=== PATIENT | female | born 1985 | race Caucasian/White ===

== ENCOUNTER 2017-04-22 16:52 | Emergency (ER) | payer MEDICAID ==
[~2017-04-22] VITALS: Ht 167.6 cm; Wt 92.0 kg
[2017-04-22] MEDS ORDERED: HYDROmorphone 1 mg/ml syringe IV PRN (17:05)
[2017-04-22] MEDS ORDERED: ondansetron 4mg rapidly disintigrating tab PO ONE (17:05)
[2017-04-22 17:18] LABS: BASOPHILS % (AUTO) 0.4 % (0-1); EOSINOPHILS # (AUTO) 0.4 X10'3 (0-0.9); EOSINOPHILS % (AUTO) 2.9 % (0-6); HEMATOCRIT 45.2 % (35.0-45.0); HEMOGLOBIN 15.6 g/dl (12.0-16.0); LYMPHOCYTES # (AUTO) 1.5 X10'3 (1.1-4.8); LYMPHOCYTES % (AUTO) 12.5 % (21-51); MEAN CORPUSCULAR HEMOGLOBIN 32.6 PG (27.0-31.0); MEAN CORPUSCULAR HGB CONC 34.4 % (33.0-36.5); MEAN CORPUSCULAR VOLUME 94.7 FL (78-98); MEAN PLATELET VOLUME 7.6 FL (7.4-10.4); MONOCYTES # (AUTO) 0.8 X10'3 (0-0.9); MONOCYTES % (AUTO) 6.3 % (2-12); NEUTROPHILS # (AUTO) 9.4 X10'3 (1.8-7.7); NEUTROPHILS % (AUTO) 77.9 % (42-75); PLATELET COUNT 329 X10'3 (140-440); RED BLOOD COUNT 4.78 X10'6 (4.20-5.60); RED CELL DISTRIBUTION WIDTH 12.6 % (11.5-14.5); WHITE BLOOD COUNT 12.1 X10'3 (4.5-11.0)
[2017-04-22 17:34] LABS: ALANINE AMINOTRANSFERASE 30 U/L (12-78); ALBUMIN 3.9 G/DL (3.4-5.0); ALKALINE PHOSPHATASE 67 IU/L (46-116); ANION GAP 7 (8-16); ASPARTATE AMINO TRANSFERASE 36 U/L (10-37); BILIRUBIN,TOTAL 0.5 MG/DL (0.1-1.0); BLOOD UREA NITROGEN 15 MG/DL (7-18); BUN/CREATININE RATIO 20.3 (6.6-38.0); CALCIUM 9.1 MG/DL (8.5-10.1); CHLORIDE 106 MMOL/L (99-107); CREATININE 0.74 MG/DL (0.40-0.90); GLUCOSE 109 MG/DL (70-104); LIPASE 175 U/L (73-393); POTASSIUM 4.1 MMOL/L (3.5-5.1); SODIUM 141 MMOL/L (135-145); TOTAL CARBON DIOXIDE 27.6 MMOL/L (24-32); TOTAL PROTEIN 7.8 G/DL (6.4-8.2); eGFR > 90 ML/MIN
[2017-04-22 19:54] LABS: URINE HCG NEGATIVE (NEG)
[2017-04-22 19:55] LABS: COLOR,URINE YELLOW (Yellow); GLUCOSE, URINE NEGATIVE (Neg); KETONES,URINE 15 mg/dl (Neg); LEUKOCYTE ESTERASE ,URINE NEGATIVE (Neg); NITRITES, URINE NEGATIVE (Neg); OCCULT BLOOD,URINE SMALL (Neg); PROTEIN,URINE NEGATIVE (Neg); UROBILINOGEN,URINE 0.2 E.U/dL (0.2-1.0)
[2017-04-22 20:06] LABS: UA COLLECTION TYPE CLN CATCH MIDSTREAM
[2017-04-22 20:07] LABS: CLARITY,URINE SLIGHTLY CLOUDY (Clear)
[2017-04-22 20:08] LABS: BACTERIA,URINE FEW /HPF (Neg); MUCUS STRANDS MODERATE /LPF (Neg); SQUAMOUS EPITHELIAL CELL,UR FEW /LPF (FEW); WBC,URINE NONE SEEN /HPF (0-4)
[2017-04-22 20:35] VITALS: BP 124/80
[2017-04-22] MEDS ORDERED: HYDR-3965 PO (21:53)
== END 2017-04-22 22:03 | disposition home or self-care (01) ==
LOC: ER 16:54
DX: K80.50 Calculus of bile duct without cholangitis or cholecystitis without obstruction (principal); R10.11 Right upper quadrant pain; Z88.6 Allergy status to analgesic agent; Z88.8 Allergy status to other drugs, medicaments and biological substances
CPT/HCPCS: 36415; 74176; 76700; 80053; 81001; 81025; 83690; 85025; 96374; 99285; J1170

== ENCOUNTER 2017-04-24 05:15 | Emergency (ER) | payer MEDICAID ==
[~2017-04-24] VITALS: Ht 167.6 cm; Wt 92.4 kg
[~2017-04-24 05:15] MED LIST: HYDR-3965 PO
[2017-04-24] MEDS ORDERED: ondansetron/PF 4mg/2ml inj IV ONE (06:20)
[2017-04-24] MEDS ORDERED: normal saline 1000ml 1,000 ML IV ONE (06:20)
[2017-04-24] MEDS ORDERED: ketorolac trometh. 30mg/ml inj. IV ONE (06:20)
[2017-04-24 06:26] LABS: CLARITY,URINE SLIGHTLY CLOUDY (Clear); COLOR,URINE YELLOW (Yellow); GLUCOSE, URINE NEGATIVE (Neg); KETONES,URINE 15 mg/dl (Neg); LEUKOCYTE ESTERASE ,URINE TRACE (Neg); NITRITES, URINE NEGATIVE (Neg); OCCULT BLOOD,URINE MODERATE (Neg); PH,URINE 5.5 (4.8-8.0); PROTEIN,URINE NEGATIVE (Neg)
[2017-04-24 06:31] LABS: UA COLLECTION TYPE CLN CATCH MIDSTREAM
[2017-04-24 06:33] LABS: BACTERIA,URINE 1+ /HPF (Neg); MUCUS STRANDS NONE SEEN /LPF (Neg); RBC,URINE 0-2 /HPF (0-2); SQUAMOUS EPITHELIAL CELL,UR MANY /LPF (FEW); WBC,URINE 0-4 /HPF (0-4)
[2017-04-24 06:34] LABS: BASOPHILS # (AUTO) 0.1 X10'3 (0-0.2); BASOPHILS % (AUTO) 0.6 % (0-1); EOSINOPHILS # (AUTO) 0.3 X10'3 (0-0.9); EOSINOPHILS % (AUTO) 2.3 % (0-6); HEMATOCRIT 44.3 % (35.0-45.0); HEMOGLOBIN 15.4 g/dl (12.0-16.0); LYMPHOCYTES # (AUTO) 1.4 X10'3 (1.1-4.8); LYMPHOCYTES % (AUTO) 12.6 % (21-51); MEAN CORPUSCULAR HEMOGLOBIN 33.1 PG (27.0-31.0); MEAN CORPUSCULAR HGB CONC 34.9 % (33.0-36.5); MEAN CORPUSCULAR VOLUME 94.8 FL (78-98); MEAN PLATELET VOLUME 8.3 FL (7.4-10.4); MONOCYTES # (AUTO) 0.6 X10'3 (0-0.9); MONOCYTES % (AUTO) 5.5 % (2-12); NEUTROPHILS # (AUTO) 8.8 X10'3 (1.8-7.7); PLATELET COUNT 312 X10'3 (140-440); RED BLOOD COUNT 4.67 X10'6 (4.20-5.60); RED CELL DISTRIBUTION WIDTH 12.4 % (11.5-14.5); WHITE BLOOD COUNT 11.2 X10'3 (4.5-11.0)
[2017-04-24 06:38] LABS: PROTHROMBIN TIME 10.1 SECONDS (9.0-12.0)
[2017-04-24 06:53] LABS: ALANINE AMINOTRANSFERASE 28 U/L (12-78); ALBUMIN 3.8 G/DL (3.4-5.0); ALKALINE PHOSPHATASE 75 IU/L (46-116); ANION GAP 13 (8-16); ASPARTATE AMINO TRANSFERASE 18 U/L (10-37); BILIRUBIN,TOTAL 0.6 MG/DL (0.1-1.0); BLOOD UREA NITROGEN 11 MG/DL (7-18); BUN/CREATININE RATIO 13.8 (6.6-38.0); CALCIUM 9.3 MG/DL (8.5-10.1); CHLORIDE 104 MMOL/L (99-107); GLUCOSE 107 MG/DL (70-104); POTASSIUM 3.6 MMOL/L (3.5-5.1); SODIUM 141 MMOL/L (135-145); TOTAL CARBON DIOXIDE 23.8 MMOL/L (24-32); TOTAL PROTEIN 7.8 G/DL (6.4-8.2); eGFR 84 ML/MIN
[2017-04-24] MEDS ORDERED: ONDA8TAB9 PO (07:35)
[2017-04-24 07:48] VITALS: BP 124/74
[2017-04-25] MEDS ORDERED: LIDOcaine 1% 30ml vial 30 ML ONE (19:08)
[2017-04-25] MEDS ORDERED: BUPIVAcaine/PF 2.5 mg/ml (0.25%) 30ml vial ONE (19:08)
[2017-04-25] MEDS ORDERED: ondansetron/PF 4mg/2ml inj ONE (21:05)
== END 2017-04-24 07:50 | disposition home or self-care (01) ==
LOC: ER 05:15
DX: K80.80 Other cholelithiasis without obstruction (principal); R10.11 Right upper quadrant pain; Z88.8 Allergy status to other drugs, medicaments and biological substances
CPT/HCPCS: 36415; 80053; 81001; 85025; 85610; 96361; 96374; 96375; 99284; J1885; J2405; J7030; J3490

== ENCOUNTER 2017-04-25 12:33 | Inpatient (IN) | payer MEDICAID ==
[2017-04-25] VITALS (11 sets, daily range): BP systolic 111–132; BP diastolic 68–84
[~2017-04-25] VITALS: Ht 167.6 cm; Wt 92.0 kg
[~2017-04-25 12:33] MED LIST changes: +ONDA8TAB9 PO
[2017-04-25] MEDS ORDERED: normal saline 1000ML IV soln IVB ONE ×2 (14:20→15:55)
[2017-04-25] MEDS ORDERED: ondansetron/PF 4mg/2ml inj IV ONE ×2 (14:20→15:55)
[2017-04-25] MEDS ORDERED: morphine 5 MG/ML injection IV ONE (14:20)
[2017-04-25 14:48] LABS: BASOPHILS % (AUTO) 0 % (0-1); EOSINOPHILS # (AUTO) 0.2 X10'3 (0-0.9); EOSINOPHILS % (AUTO) 1.4 % (0-6); HEMATOCRIT 45.8 % (35.0-45.0); HEMOGLOBIN 15.5 g/dl (12.0-16.0); LYMPHOCYTES % (AUTO) 7.4 % (21-51); MEAN CORPUSCULAR HEMOGLOBIN 32.4 PG (27.0-31.0); MEAN CORPUSCULAR HGB CONC 33.8 % (33.0-36.5); MEAN CORPUSCULAR VOLUME 95.8 FL (78-98); MEAN PLATELET VOLUME 8.2 FL (7.4-10.4); MONOCYTES # (AUTO) 0.5 X10'3 (0-0.9); MONOCYTES % (AUTO) 3.3 % (2-12); NEUTROPHILS # (AUTO) 12.4 X10'3 (1.8-7.7); NEUTROPHILS % (AUTO) 87.9 % (42-75); PLATELET COUNT 309 X10'3 (140-440); RED BLOOD COUNT 4.78 X10'6 (4.20-5.60); RED CELL DISTRIBUTION WIDTH 12.4 % (11.5-14.5); WHITE BLOOD COUNT 14.1 X10'3 (4.5-11.0)
[2017-04-25 14:57] LABS: PARTIAL THROMBOPLASTIN TIME 28 SECONDS (22-32); PROTHROMBIN TIME 10.3 SECONDS (9.0-12.0)
[2017-04-25 15:04] LABS: ALANINE AMINOTRANSFERASE 23 U/L (12-78); ALKALINE PHOSPHATASE 76 IU/L (46-116); ANION GAP 15 (8-16); ASPARTATE AMINO TRANSFERASE 16 U/L (10-37); BILIRUBIN,TOTAL 0.5 MG/DL (0.1-1.0); BLOOD UREA NITROGEN 9 MG/DL (7-18); BUN/CREATININE RATIO 11.4 (6.6-38.0); CHLORIDE 104 MMOL/L (99-107); CREATININE 0.79 MG/DL (0.40-0.90); GLUCOSE 109 MG/DL (70-104); LIPASE 132 U/L (73-393); SODIUM 140 MMOL/L (135-145); TOTAL CARBON DIOXIDE 21.3 MMOL/L (24-32); eGFR 85 ML/MIN
[2017-04-25] MEDS ORDERED: acetaminophen 650mg rectal suppository RC PRN (16:25)
[2017-04-25] MEDS ORDERED: bisacodyl 10mg suppository rectal RC PRN (16:25)
[2017-04-25] MEDS ORDERED: ondansetron/PF 4mg/2ml inj IV PRN ×2 (16:25→19:30)
[2017-04-25 16:28] LABS: URINE HCG NEGATIVE (NEG)
[2017-04-25 16:30] LABS: CLARITY,URINE CLEAR (Clear); COLOR,URINE YELLOW (Yellow); GLUCOSE, URINE NEGATIVE (Neg); KETONES,URINE >=80 mg/dl (Neg); LEUKOCYTE ESTERASE ,URINE TRACE (Neg); NITRITES, URINE NEGATIVE (Neg); OCCULT BLOOD,URINE LARGE (Neg); PROTEIN,URINE NEGATIVE (Neg); UROBILINOGEN,URINE 0.2 E.U/dL (0.2-1.0)
[2017-04-25 16:31] LABS: UA COLLECTION TYPE CLN CATCH MIDSTREAM
[2017-04-25 16:39] LABS: BACTERIA,URINE NONE SEEN /HPF (Neg); SQUAMOUS EPITHELIAL CELL,UR MANY /LPF (FEW); WBC,URINE 0-4 /HPF (0-4)
[2017-04-25] MEDS: normal saline 1000ml 1,000 ML IV SCH (16:52)
[2017-04-25] MEDS ORDERED: ceFAZolin inj. 2,000 MG in dextrose 5%-water 50ml 50 ML IV ONE (18:25)
[2017-04-25] MEDS: ceFAZolin 2gm in dextrose, iso 100 ML IV ONE ×2 (18:40→22:18)
[2017-04-25] MEDS ORDERED: ringers solution, lacted 1,000 ML IV SCH (19:26)
[2017-04-25] MEDS ORDERED: sevoflurane 250ml liquid IH ONE ×2 (19:28)
[2017-04-25] MEDS ORDERED: proCHLORperazine 10 MG/2 ml inj IV PRN (19:30)
[2017-04-25] MEDS ORDERED: meperidine/PF 25mg/ml syringe IV PRN ×3 (19:30)
[2017-04-25] MEDS ORDERED: fentaNYL/PF 50MCG/1 ML 2ML syringe ONE (19:32)
[2017-04-25] MEDS ORDERED: midazolam 2 mg/2 ml injection ONE (19:32)
[2017-04-25] MEDS ORDERED: rocuronium 10mg/ml inj IV ONE (19:35)
[2017-04-25] MEDS ORDERED: propofol inj 20 ML IV ONE (19:35)
[2017-04-25] MEDS ORDERED: neostigmine methylsulfate 1 MG/ML 10ml vial ONE (20:57)
[2017-04-25] MEDS ORDERED: glycopyrrolate 0.2mg/ml inj ONE (20:57)
[2017-04-25] MEDS ORDERED: cefazolin/dext.iso 2gm/50ml 50 ML IV ONE (23:30)
[2017-04-26] VITALS: BP 126/70
[2017-04-26 00:45] VITALS: BP 118/78
[2017-04-26 01:45] VITALS: BP 110/63
[2017-04-26 04:00] VITALS: BP 114/71
[2017-04-26] MEDS: normal saline 1000ml 1,000 ML IV SCH ×3 (04:02→13:29)
[2017-04-26 04:59] LABS: BASOPHILS % (AUTO) 0 % (0-1); EOSINOPHILS % (AUTO) 0.1 % (0-6); HEMATOCRIT 40.4 % (35.0-45.0); HEMOGLOBIN 13.7 g/dl (12.0-16.0); LYMPHOCYTES % (AUTO) 11.8 % (21-51); MEAN CORPUSCULAR HEMOGLOBIN 32.3 PG (27.0-31.0); MEAN CORPUSCULAR HGB CONC 33.8 % (33.0-36.5); MEAN CORPUSCULAR VOLUME 95.7 FL (78-98); MEAN PLATELET VOLUME 8.4 FL (7.4-10.4); MONOCYTES # (AUTO) 0.9 X10'3 (0-0.9); MONOCYTES % (AUTO) 5.1 % (2-12); NEUTROPHILS # (AUTO) 14.3 X10'3 (1.8-7.7); PLATELET COUNT 260 X10'3 (140-440); RED BLOOD COUNT 4.23 X10'6 (4.20-5.60); RED CELL DISTRIBUTION WIDTH 12.5 % (11.5-14.5); WHITE BLOOD COUNT 17.3 X10'3 (4.5-11.0)
[2017-04-26 05:34] LABS: ALANINE AMINOTRANSFERASE 24 U/L (12-78); ALBUMIN 2.8 G/DL (3.4-5.0); ALBUMIN/GLOBULIN RATIO 0.8 (1.1-1.5); ALKALINE PHOSPHATASE 58 IU/L (46-116); ANION GAP 8 (8-16); ASPARTATE AMINO TRANSFERASE 30 U/L (10-37); BILIRUBIN,TOTAL 0.6 MG/DL (0.1-1.0); BLOOD UREA NITROGEN 6 MG/DL (7-18); BUN/CREATININE RATIO 9.7 (6.6-38.0); CALCIUM 8.3 MG/DL (8.5-10.1); CHLORIDE 107 MMOL/L (99-107); CREATININE 0.62 MG/DL (0.40-0.90); GLUCOSE 91 MG/DL (70-104); POTASSIUM 3.7 MMOL/L (3.5-5.1); SODIUM 137 MMOL/L (135-145); TOTAL CARBON DIOXIDE 21.8 MMOL/L (24-32); TOTAL PROTEIN 6.1 G/DL (6.4-8.2); eGFR > 90 ML/MIN
[2017-04-26 07:28] VITALS: BP 129/68
[2017-04-26 12:44] VITALS: BP 129/74
[2017-04-26] MEDS ORDERED: HYDR-565 PO (16:50)
== END 2017-04-26 18:26 | disposition home or self-care (01) | DRG 263 ==
LOC: ER 12:34 → ED HOLD 16:18 → INTOOBSV 16:21 → UNDOADMOB 16:21 → ED HOLD 16:21 → OBSVTOIN 16:21 → SUR 3N 21:45 → ED HOLD 21:45
PROVIDERS: ADMIT Family Medicine; ATTEND Internal Medicine
PROC: 0FT44ZZ Resection of Gallbladder, Percutaneous Endoscopic Approach (ICD-10-PCS; principal; 2017-04-25 19:28)
DX: K80.00 Calculus of gallbladder with acute cholecystitis without obstruction (principal); F17.210 Nicotine dependence, cigarettes, uncomplicated; J45.909 Unspecified asthma, uncomplicated; Z80.1 Family history of malignant neoplasm of trachea, bronchus and lung; Z88.8 Allergy status to other drugs, medicaments and biological substances; Z79.899 Other long term (current) drug therapy
CPT/HCPCS: 36415; 76700; 80053; 81001; 81025; 83690; 85025; 85610; 85730; 87070; 96374; 96375; 96376; 99285; A7000; G0378; J0690; J2250; J2270; J2405; J2704; J2710; J3010; J3490; J7030; J7060; J7120

== ENCOUNTER 2021-11-18 12:43 | Emergency (ER) | payer MEDICAID ==
[~2021-11-18] VITALS: Ht 167.6 cm; Wt 88.6 kg
[~2021-11-18 12:43] MED LIST changes: -HYDR-3965 PO
[2021-11-18 13:51] VITALS: BP 105/75
[2021-11-18] MEDS ORDERED: METH4TAB81 PO (16:08)
[2021-11-18] MEDS ORDERED: triamcinolone acetonide 40mg/ml inj IM ONE (16:10)
== END 2021-11-18 12:45 | disposition home or self-care (01) ==
LOC: ER 12:44
DX: T78.40XA Allergy, unspecified, initial encounter (principal); Z88.8 Allergy status to other drugs, medicaments and biological substances; Z91.013 Allergy to seafood; X58.XXXA Exposure to other specified factors, initial encounter
CPT/HCPCS: 96372; 99283; J3301

== ENCOUNTER 2023-07-28 21:07 | Emergency (ER) | payer MEDICAID ==
[~2023-07-28] VITALS: Ht 167.6 cm; Wt 91.0 kg
[~2023-07-28 21:07] MED LIST changes: +METH4TAB81 PO
[2023-07-28] MEDS ORDERED: ketorolac trometh. 30mg/ml inj. IV ONE (21:50)
[2023-07-28] MEDS ORDERED: dexamethasone 4mg/ml inj IV SCH (21:50)
[2023-07-28] MEDS: ketorolac tromethamine 15mg/ml inj. IV ONE (22:36)
[2023-07-28] MEDS: proCHLORperazine 10 MG/2 ml inj IV ONE (22:36)
[2023-07-28] MEDS: diphenhydrAMINE 50 mg/ml inj IV ONE (22:37)
[2023-07-28] MEDS: normal saline 1000ml 1,000 ML IV ONE (22:40)
[2023-07-28] MEDS: dexamethasone 4mg/ml inj IV ONE (22:40)
[2023-07-28] MEDS ORDERED: DOCU-148 PO (23:21)
[2023-07-28] MEDS ORDERED: ONDA8TAB13 PO (23:21)
[2023-07-28] MEDS ORDERED: SUMA50TA17 PO (23:21)
[2023-07-28] MEDS ORDERED: POLY119P2 PO (23:21)
[2023-07-28 23:43] VITALS: BP 175/96; PULSE 18; RESP 16; TEMP 98.6; O2SAT 100
== END 2023-07-28 23:45 | disposition home or self-care (01) ==
LOC: ER 21:07
DX: K59.00 Constipation, unspecified (principal); R51.9 Headache, unspecified; Z88.8 Allergy status to other drugs, medicaments and biological substances; Z91.013 Allergy to seafood; Z79.899 Other long term (current) drug therapy
CPT/HCPCS: 74018; 96361; 96374; 96375; 99284; J0780; J1100; J1200; J1885; J7030